=== PATIENT | male | born 1960 | race Caucasian/White ===

== ENCOUNTER 2017-01-25 18:47 | Emergency (ER) | payer BC ==
[2017-01-25 18:56] VITALS: TEMP 98.2
--- NOTE | 2017-01-25 19:23 | EDPHY ---
H & P Time Seen by Provider: 01/25/17 19:05 HPI/ROS: CHIEF COMPLAINT: visual change HISTORY OF PRESENT ILLNESS: 56 year old male complaining of vision changes in his right eye onset yesterday. He began to notice little black dots in his field of vision, and today has "thousands" of them. He can see the dots better against light backgrounds and they tend to resolve when he looks at a dark object. No diplopia or burred vision. He has family history of detached retina, and had preventative cryosurgery for lattice degeneration decades ago. He recently moved from [place], and generally follows up with this commercial production editor there. No headache, fever, vomiting, BALTAZAR, trauma, or other associated symptoms. Past Medical/Surgical History: 1. Thyroidectomy 2. Hodgkin's lymphoma Social History: Moved to [place] 4 years ago from [place]. Former smoker. Smoking Status: Former smoker Physical Exam: Visual Acuity: noted from Nurse's notes. Lids: no proptosis, no periorbital erythema or swelling, no vesicles Conjunctivae: No erythema, no discharge Pupils: equal round and reactive to light EOMI Cornea: Normal Anterior chamber: Clear, no hyphema Constitutional: Initial Vital Signs Temperature (C) 36.8 C 01/25/17 18:52 Heart Rate 86 01/25/17 18:52 Respiratory Rate 18 01/25/17 18:52 Blood Pressure 118/81 H 01/25/17 18:52 O2 Sat (%) 93 01/25/17 18:52 O2 Delivery Mode Room Air Allergies/Adverse Reactions: erythromycin base Allergy (Verified 01/25/17 18:50) Home Medications: Medication Instructions Recorded CALCITRIOL 01/25/17 THYROID 01/25/17 Medical Decision Making ED Course/Re-evaluation: 56 year old male presenting with black spots in his vision onset yesterday. Eye exam unremarkable. Plan to consult with commercial production editor it communications manager. 19:[address] Grande, commercial production editor. He will see the patient next week for continued evaluation. Reassessed patent. Discussed follow up with Dr. Grande. The patient is comfortable with this plan. Differential Diagnosis: Differential diagnosis includes hyphema, retinal detachment, acute iritis, traumatic mydriasis, corneal abrasion, globe rupture. Departure - Departure Disposition: Home, Routine, Self-Care Clinical Impression: Visual field scotoma of right eye Condition: Good Instructions: Visual Floaters (ED) Referrals: Gage Grande MD [Medical Doctor] - As per Instructions (Call on Friday to make an appointment. If you have worsening symptoms, call Dr. Trent's office phone number and he will see you sooner.) Report Scribed for: Faiza Mann Report Scribed by: Stephany Glaser Date of Report: 01/25/17 Time of Report: 19:24 Physician Review and Approval Statement: 01/25/17 19:24 Portions of this note were transcribed by a medical receptionist assistant. I personally performed a history, physical exam, medical decision making, and confirmed accuracy of information the transcribed note.
[2017-01-25 20:04] VITALS: BP 126/82; PULSE 80; RESP 14; O2SAT 94
== END 2017-01-25 20:04 | disposition home or self-care (01) ==
DX: H53.411 Scotoma involving central area, right eye (principal); Z85.71 Personal history of Hodgkin lymphoma; Z87.891 Personal history of nicotine dependence